=== PATIENT | female | born 1965 | race Caucasian/White ===

== ENCOUNTER 2020-10-08 16:24 | Observation (INO) | payer OTHER ==
[~2020-10-08] VITALS: Ht 185.4 cm; Wt 88.9 kg
--- NOTE | 2020-10-08 18:13 | NUR ---
memorial counselor: Pt ambulatory to room from lobby at this time.
--- NOTE | 2020-10-08 18:18 | NUR ---
PT SITTING IN CHAIR AWAKE & COMFORTABLE BUT ANXIOUS, REASSURANCE HELPFUL, EYE PATCH TO OD IN PLACE HELPFUL IN MINIMIZING S/S, RESPONDS APPROP TO STAFF, COMFORT MEASURES PROVIDED, AT BS, CALL LIGHT WITHIN REACH. Addendum: 10/08/20 at 1833 by GLENN PT SITTING IN CHAIR AWAKE & COMFORTABLE BUT ANXIOUS, REASSURANCE HELPFUL, EYE PATCH TO OD IN PLACE HELPFUL IN MINIMIZING S/S, PT STATES WOKE UP WITH "DROOPY LID, DOUBLE VISION & A WEIRD PRESSURE IN HER EYE", OPHTHAMOLOGIST REFFERED HER TO ER FOR CT, HX OF THYROID CA, COMFORT MEASURES PROVIDED, AT BS, CALL LIGHT WITHIN REACH.
--- NOTE | 2020-10-08 18:53 | NUR ---
REPORT GIVEN TO SHAUN JONES
--- NOTE | 2020-10-08 18:54 | NUR ---
report from Deja JONES
--- NOTE | 2020-10-08 19:40 | NUR ---
Pt ambulatory to MRI
[2020-10-08] MEDS ORDERED: GADOTERATE 10 MMOL/20ML SYR ONE (19:50)
[2020-10-08 21:00] LABS: BASOPHILS % (AUTO) 1 % (0-1); EOSINOPHILS % (AUTO) 3 % (1-7); LYMPHOCYTES % (AUTO) 42 % (22-44); MEAN CORPUSCULAR HEMOGLOBIN 30.8 pg (27.0-34.8); MEAN CORPUSCULAR HGB CONC 32.7 g/dL (32.4-35.8); MEAN PLATELET VOLUME 7.1 fL (7.4-10.4); MONOCYTES % (AUTO) 9 % (2-9); NEUTROPHILS % (AUTO) 45 % (42-75); PLATELET COUNT 389 x10^3/uL (130-400); RED BLOOD COUNT 4.41 x10^6/uL (3.82-5.3); RED CELL DISTRIBUTION WIDTH 13.4 % (9.6-15.2)
[2020-10-08 21:01] LABS: HCT (SEDRATE) 38.8 % (34.6-47.8)
[2020-10-08 21:07] LABS: ALBUMIN 3.6 g/dL (3.4-5.0); ANION GAP 6 mmol/L (5-15); CALCIUM 9.2 mg/dL (8.5-10.1); CHLORIDE 104 mmol/L (98-107)
[2020-10-08 21:12] LABS: ALANINE AMINOTRANSFERASE 24 U/L (12-78); ALKALINE PHOSPHATASE 77 U/L (45-117); BILIRUBIN,TOTAL 0.7 mg/dL (0.2-1.0); C-REACTIVE PROTEIN, QUANT 0.61 mg/dL (0.02-0.49); CREATININE 0.69 mg/dL (0.55-1.02); TOTAL PROTEIN 6.8 g/dL (6.4-8.2)
--- NOTE | 2020-10-08 22:17 | NUR ---
ambulatory with steady gait to restroom
[2020-10-08] MEDS ORDERED: ACETAMINOPHEN 325 MG TABLET PO PRN (22:30)
[2020-10-08] MEDS ORDERED: ONDANSETRON ODT 4 MG PO PRN (22:30)
[2020-10-08] MEDS ORDERED: POLYETHYLENE GLYCOL 17 GM PACKET PO PRN (22:30)
[2020-10-08] MEDS ORDERED: OXYcodone IR 5MG TABLET PO PRN (22:30)
[2020-10-08] MEDS ORDERED: BISACODYL 10 MG SUPP PR PRN (22:30)
--- NOTE | 2020-10-08 22:44 | NUR ---
Report to ASHANTI JONES
[2020-10-08] MEDS ORDERED: PSYL1POW PO (23:30)
[2020-10-08] MEDS ORDERED: MELA3CAP2 PO (23:30)
[2020-10-08] MEDS ORDERED: CHOL500050 PO (23:30)
[2020-10-08] MEDS ORDERED: ASCO500C10 PO (23:30)
[2020-10-08] MEDS: SODIUM CHLORIDE FLUSH 10ML SYR IVF SCH (23:33)
[2020-10-08 23:47] VITALS: BP 119/83
[2020-10-09 00:10] VITALS: BP 117/81
[2020-10-09 07:45] VITALS: BP 95/62
[2020-10-09] MEDS ORDERED: SENNA/DOCUSATE TABLET PO SCH (09:00)
[2020-10-09] MEDS: SODIUM CHLORIDE FLUSH 10ML SYR IVF SCH (09:00)
[2020-10-09] MEDS ORDERED: OMEP-110 PO (13:43)
[2020-10-09] MEDS ORDERED: PRED20TA PO (13:43)
[2020-10-10 15:17] LABS: ANA SCREEN POSITIVE (Negative)
[2020-10-10 15:18] LABS: ANTI-NUCLEAR ANTIBODY PATTERN HOMOGENOUS
== END 2020-10-09 16:44 | disposition home or self-care (01) ==
LOC: ED 21:17 → EDIP 21:33 → INTOOBSV 21:33 → 3N 23:22
PROVIDERS: ADMIT Family Medicine; ATTEND Family Medicine
DX: H53.2 Diplopia (principal); H05.10 Unspecified chronic inflammatory disorders of orbit; H05.119 Granuloma of unspecified orbit; K52.831 Collagenous colitis; F41.8 Other specified anxiety disorders; Z90.711 Acquired absence of uterus with remaining cervical stump; Z85.850 Personal history of malignant neoplasm of thyroid; Z79.899 Other long term (current) drug therapy
CPT/HCPCS: 36415; 70543; 70553; 80053; 85025; 85651; 86038; 86039; 86140; 99285; A9575; G0378